=== PATIENT | female | born 1995 | race African-American/Black ===

== ENCOUNTER 2017-01-04 12:20 | Emergency (ER) | payer OTHER ==
[~2017-01-04] VITALS: Ht 162.6 cm; Wt 80.0 kg
[~2017-01-04 12:20] MED LIST: AMOXICILLIN500 MG PO; FLAGYL500 MG OR; SEPTRA4001 PO; ZITHROMAX250 MG PO
[2017-01-04] MEDS ORDERED: PEPCID20 MG PO (13:11)
[2017-01-04] MEDS ORDERED: BENADRYL 50MG C50 MG PO (13:11)
[2017-01-04] MEDS ORDERED: MEDDOSEPAK PO (13:11)
[2017-01-04 13:39] VITALS: BP 119/77
== END 2017-01-04 13:40 | disposition home or self-care (01) | DRG 916 ==
LOC: ED 12:20
DX: T78.40XA Allergy, unspecified, initial encounter (principal)

== ENCOUNTER 2017-01-05 12:21 | Emergency (ER) | payer OTHER ==
[~2017-01-05] VITALS: Ht 162.6 cm; Wt 100.0 kg
[~2017-01-05 12:21] MED LIST changes: +BENADRYL 50MG C50 MG PO; +MEDDOSEPAK PO; +PEPCID20 MG PO
[2017-01-05 14:47] VITALS: BP 119/68
== END 2017-01-05 14:47 | disposition home or self-care (01) | DRG 607 ==
LOC: ED 12:21
DX: L50.0 Allergic urticaria (principal)

== ENCOUNTER 2017-11-12 16:53 | Emergency (ER) | payer OTHER ==
[~2017-11-12] VITALS: Ht 162.6 cm; Wt 84.0 kg
[2017-11-12 17:50] LABS: URINE BILIRUBIN - DIPSTICK NEGATIVE (NEGATIVE); URINE BLOOD DIPSTICK NEGATIVE (NEGATIVE); URINE COLOR YELLOW; URINE GLUCOSE - DIPSTICK NEGATIVE (NEGATIVE); URINE KETONE NEGATIVE (NEGATIVE); URINE LEUK ESTERASE NEGATIVE (NEGATIVE); URINE NITRITE - DIPSTICK NEGATIVE (Negative); URINE PH 6.5 (4.5-8.0); URINE PROTEIN - DIPSTICK NEGATIVE (NEG-TRACE); URINE SPECIFIC GRAVITY 1.015
[2017-11-12 17:55] LABS: HCG SERUM/URINE (NEG/POS) NEGATIVE (NEGATIVE)
[2017-11-12 18:08] LABS: URINE CLARITY CLEAR
[2017-11-12] MEDS ORDERED: MONISTAT1 VA (18:12)
[2017-11-12 18:25] VITALS: BP 140/85
== END 2017-11-12 18:25 | disposition home or self-care (01) | DRG 759 ==
LOC: ED 16:53
PROVIDERS: Emergency Medicine
DX: N76.0 Acute vaginitis (principal); N91.2 Amenorrhea, unspecified

== ENCOUNTER 2017-12-01 21:47 | Emergency (ER) | payer OTHER ==
[~2017-12-01] VITALS: Ht 162.6 cm; Wt 95.4 kg
[~2017-12-01 21:47] MED LIST changes: +MONISTAT1 VA
[2017-12-01] MEDS ORDERED: IMITREX100 M1 PO (23:12)
[2017-12-01 23:29] VITALS: BP 149/88
== END 2017-12-01 23:30 | disposition home or self-care (01) | DRG 103 ==
LOC: ED 21:47
DX: G43.909 Migraine, unspecified, not intractable, without status migrainosus (principal)

== ENCOUNTER 2018-01-07 11:56 | Emergency (ER) | payer OTHER ==
[~2018-01-07] VITALS: Ht 162.6 cm; Wt 84.0 kg
[~2018-01-07 11:56] MED LIST changes: +IMITREX100 M1 PO
[2018-01-07 12:00] VITALS: BP 152/80
[2018-01-07] MEDS ORDERED: DOXYCYCL HYC100 MG PO (12:36)
[2018-01-07] MEDS ORDERED: BACTROBAN TOP (12:36)
== END 2018-01-07 12:43 | disposition home or self-care (01) | DRG 607 ==
LOC: ED 11:56
DX: L73.9 Follicular disorder, unspecified (principal)

== ENCOUNTER 2018-11-19 01:01 | Emergency (ER) | payer OTHER ==
[~2018-11-19] VITALS: Ht 162.6 cm; Wt 90.9 kg
[~2018-11-19 01:01] MED LIST changes: +BACTROBAN TOP; +DOXYCYCL HYC100 MG PO
[2018-11-19] MEDS ORDERED: BLISOVI FE PO (01:32)
[2018-11-19 02:14] LABS: HEMATOCRIT 39.2 % (37.0-47.0); HEMOGLOBIN 12.3 g/dl (12.0-16.0); IMMATURE GRANULOCYTES 0.3 % (0.0-5.0); MEAN CORPUSCULAR HGB 27.3 pG CALC (26.0-32.0); MEAN CORPUSCULAR HGB CONC 31.4 g/L CALC (32.0-36.0); NEUT# 4.67 thou/uL (2.00-7.15); RED BLOOD COUNT 4.5 mill/uL (4.20-5.60); RED CELL DISTRI WIDTH 12.4 % (11.5-15.5)
[2018-11-19 02:22] LABS: MEAN CELL VOLUME 87.1 fL CALC (80.0-100.0)
[2018-11-19 02:23] LABS: ALBUMIN 4.6 g/dL (3.2-5.0); ALKALINE PHOSPHATASE 140 u/l (38-126); ANION GAP 13 (6-22 (CALC)); BILIRUBIN, TOTAL 0.5 mg/dL (0.0-1.4); BUN 10 mg/dL (7-17); BUN/CREATININE RATIO 15 (12-20 (CALC)); CARBON DIOXIDE 26 mmol/l (22-30); CHLORIDE 106 mmol/l (95-108); CREATININE 0.7 mg/dL (0.5-1.0); GFR > 60 ML/MIN (>=60 (CALC)); GFR FOR AFR.AMER. > 60 ML/MIN (>=60 (CALC)); SGOT/AST 32 u/l (14-36); SODIUM 142 mmol/l (137-146); TOTAL PROTEIN 8.5 g/dL (6.3-8.2)
[2018-11-19 02:36] LABS: URINE BLOOD DIPSTICK NEGATIVE (NEGATIVE); URINE COLOR YELLOW; URINE GLUCOSE - DIPSTICK NEGATIVE (NEGATIVE); URINE KETONE TRACE mg/dL (NEGATIVE); URINE LEUK ESTERASE NEGATIVE (NEGATIVE); URINE NITRITE - DIPSTICK NEGATIVE (Negative); URINE PH 5.5 (4.5-8.0); URINE PROTEIN - DIPSTICK TRACE mg/dL (NEG-TRACE); URINE SPECIFIC GRAVITY >=1.030; URINE UROBILINOGEN - DIPSTICK 0.2 E.U./dL (0.2)
[2018-11-19 02:40] LABS: URINE BILIRUBIN - DIPSTICK NEGATIVE (NEGATIVE)
[2018-11-19] MEDS ORDERED: PHENERGAN25 MG/TAB PO (02:56)
[2018-11-19 03:30] VITALS: BP 131/89
== END 2018-11-19 03:30 | disposition home or self-care (01) | DRG 392 ==
LOC: ED 01:01
PROVIDERS: Family Medicine
DX: K52.9 Noninfective gastroenteritis and colitis, unspecified (principal)

== ENCOUNTER 2020-03-26 15:08 | Emergency (ER) | payer OTHER ==
[~2020-03-26] VITALS: Ht 162.6 cm; Wt 104.0 kg
[~2020-03-26 15:08] MED LIST changes: +BLISOVI FE PO; +PHENERGAN25 MG/TAB PO
[2020-03-26 17:28] VITALS: BP 123/71
== END 2020-03-26 17:28 | disposition home or self-care (01) | DRG 179 ==
LOC: ED 15:08
DX: U07.1 COVID-19 (principal)

== ENCOUNTER 2020-04-02 21:32 | Emergency (ER) | payer OTHER ==
[~2020-04-02] VITALS: Ht 162.6 cm; Wt 101.8 kg
[2020-04-02] MEDS ORDERED: PREDNISONE50 MG PO (21:57)
[2020-04-02 23:12] VITALS: BP 136/82
== END 2020-04-02 23:17 | disposition home or self-care (01) | DRG 923 ==
LOC: ED 21:32
DX: T78.1XXA Other adverse food reactions, not elsewhere classified, initial encounter (principal); L50.0 Allergic urticaria; X58.XXXA Exposure to other specified factors, initial encounter

== ENCOUNTER 2020-10-21 04:33 | Emergency (ER) | payer OTHER ==
[~2020-10-21 04:33] MED LIST changes: +PREDNISONE50 MG PO
[2020-10-21 05:23] LABS: URINE BILIRUBIN - DIPSTICK NEGATIVE (NEGATIVE); URINE BLOOD DIPSTICK NEGATIVE (NEGATIVE); URINE COLOR YELLOW; URINE GLUCOSE - DIPSTICK NEGATIVE (NEGATIVE); URINE KETONE NEGATIVE (NEGATIVE); URINE LEUK ESTERASE NEGATIVE (NEGATIVE); URINE NITRITE - DIPSTICK NEGATIVE (Negative); URINE PROTEIN - DIPSTICK NEGATIVE (NEG-TRACE); URINE SPECIFIC GRAVITY 1.025
[2020-10-21] MEDS ORDERED: FIORICET PO (06:14)
[2020-10-21 06:25] VITALS: BP 128/78
== END 2020-10-21 06:42 | disposition home or self-care (01) | DRG 103 ==
LOC: ED 04:33
PROVIDERS: Emergency Medicine
DX: G43.909 Migraine, unspecified, not intractable, without status migrainosus (principal)

== ENCOUNTER 2020-12-24 07:54 | Emergency (ER) | payer OTHER ==
[~2020-12-24] VITALS: Ht 162.6 cm; Wt 96.0 kg
[~2020-12-24 07:54] MED LIST changes: +FIORICET PO
[2020-12-24] MEDS ORDERED: DECADRON4 MG PO (11:53)
[2020-12-24] MEDS ORDERED: EPIPEN 2-P0.3 MG/0.3 IM (11:53)
[2020-12-24 12:17] VITALS: BP 117/67
== END 2020-12-24 12:23 | disposition home or self-care (01) | DRG 607 ==
LOC: ED 07:54
DX: L50.0 Allergic urticaria (principal); E66.9 Obesity, unspecified

== ENCOUNTER 2020-12-26 01:00 | Emergency (ER) | payer OTHER ==
[~2020-12-26] VITALS: Ht 162.6 cm; Wt 93.0 kg
[~2020-12-26 01:00] MED LIST changes: +DECADRON4 MG PO; +EPIPEN 2-P0.3 MG/0.3 IM
[2020-12-26] MEDS ORDERED: STERAPRED DS10 MG PO (01:28)
[2020-12-26 01:59] VITALS: BP 138/91
[2020-12-27] MEDS ORDERED: PEPCID AC20 M1 PO (18:11)
[2020-12-27] MEDS ORDERED: BENADRYL25 M1 PO (18:11)
== END 2020-12-26 02:14 | disposition home or self-care (01) | DRG 607 ==
LOC: ED 01:00
DX: L50.9 Urticaria, unspecified (principal)

== ENCOUNTER 2020-12-27 17:52 | Emergency (ER) | payer OTHER ==
[~2020-12-27] VITALS: Ht 162.6 cm; Wt 100.0 kg
[~2020-12-27 17:52] MED LIST changes: +STERAPRED DS10 MG PO
[2020-12-27] MEDS ORDERED: BENADRYL25 M1 PO (18:11)
[2020-12-27] MEDS ORDERED: PEPCID AC20 M1 PO (18:11)
[2020-12-27 18:50] VITALS: BP 141/92
== END 2020-12-27 18:57 | disposition home or self-care (01) | DRG 916 ==
LOC: ED 17:52
DX: T78.40XA Allergy, unspecified, initial encounter (principal); X58.XXXA Exposure to other specified factors, initial encounter

== ENCOUNTER 2021-06-26 20:37 | Emergency (ER) | payer OTHER ==
[~2021-06-26] VITALS: Ht 162.6 cm; Wt 90.9 kg
[~2021-06-26 20:37] MED LIST changes: +BENADRYL25 M1 PO; +PEPCID AC20 M1 PO
[2021-06-26 20:47] VITALS: BP 115/78
[2021-06-26] MEDS ORDERED: PREDNISONE50 MG PO (20:54)
[2021-06-26 21:01] VITALS: BP 105/52
[2021-06-26 21:22] VITALS: BP 139/90
[2021-06-26 21:31] VITALS: BP 114/80
[2021-06-26 21:35] VITALS: BP 114/80
== END 2021-06-26 21:35 | disposition home or self-care (01) | DRG 607 ==
LOC: ED 20:37
DX: L50.9 Urticaria, unspecified (principal); Z91.013 Allergy to seafood; Z91.048 Other nonmedicinal substance allergy status

== ENCOUNTER 2021-08-11 18:53 | Emergency (ER) | payer OTHER ==
[~2021-08-11] VITALS: Ht 162.6 cm; Wt 100.0 kg
[2021-08-11] VITALS (12 sets, daily range): BP systolic 116–152; BP diastolic 61–86
[2021-08-11 20:10] LABS: IMMATURE GRANULOCYTES 2.2 % (0.0-5.0); MEAN CORPUSCULAR HGB 25.5 pG CALC (26.0-32.0); MEAN CORPUSCULAR HGB CONC 28.6 g/dL CAL (32.0-36.0); NEUT# 11.88 thou/uL (2.00-7.15); RED BLOOD COUNT 3.1 mill/uL (4.20-5.60); RED CELL DISTRI WIDTH 17.1 % (11.5-15.5)
[2021-08-11 20:12] LABS: HEMATOCRIT 27.6 % (37.0-47.0); HEMOGLOBIN 7.9 g/dl (12.0-16.0)
[2021-08-11 20:27] LABS: ANION GAP 14 (6-22 (CALC)); BUN 10 mg/dL (7-17); BUN/CREATININE RATIO 17 (12-20 (CALC)); CARBON DIOXIDE 28 mmol/l (22-30); CHLORIDE 100 mmol/l (95-108); CREATININE 0.6 mg/dL (0.5-1.0); GFR > 60 ML/MIN (>=60 (CALC)); GFR FOR AFR.AMER. > 60 ML/MIN (>=60 (CALC)); POTASSIUM 3.5 mmol/l (3.5-5.1); SODIUM 139 mmol/l (137-146); TOTAL PROTEIN 7.4 g/dL (6.3-8.2)
[2021-08-11 20:28] LABS: ALBUMIN 3.4 g/dL (3.2-5.0); ALKALINE PHOSPHATASE 292 u/l (38-126); BILIRUBIN, TOTAL 1.3 mg/dL (0.0-1.4); SGOT/AST 160 u/l (14-36)
[2021-08-11 22:15] LABS: MYOGLOBIN 13 ng/mL (0 - 62)
[2021-08-11 23:12] LABS: URINE BLOOD DIPSTICK NEGATIVE (NEGATIVE); URINE COLOR YELLOW; URINE GLUCOSE - DIPSTICK NEGATIVE (NEGATIVE); URINE KETONE TRACE mg/dL (NEGATIVE); URINE LEUK ESTERASE NEGATIVE (NEGATIVE); URINE PH 5.5 (4.5-8.0); URINE PROTEIN - DIPSTICK TRACE mg/dL (NEG-TRACE)
[2021-08-11 23:14] LABS: URINE BILIRUBIN - DIPSTICK SMALL (NEGATIVE); URINE NITRITE - DIPSTICK NEGATIVE (Negative)
== END 2021-08-11 23:35 | disposition short-term general hospital (02) | DRG 862 ==
LOC: ED 18:53
PROVIDERS: Emergency Medicine; Nurse Practitioner
DX: T81.41XA Infection following a procedure, superficial incisional surgical site, initial encounter (principal); A41.9 Sepsis, unspecified organism; L02.31 Cutaneous abscess of buttock; Y83.8 Other surgical procedures as the cause of abnormal reaction of the patient, or of later complication, without mention of misadventure at the time of the procedure; D64.9 Anemia, unspecified